=== PATIENT | male | born 1955 | race Caucasian/White ===

== ENCOUNTER 2019-06-13 19:09 | Inpatient (IN) | payer MEDICARE ==
[~2019-06-13] VITALS: Ht 177.8 cm; Wt 92.8 kg
[2019-06-13 19:44] LABS: BASOPHILS ABSOLUTE AUTO 0.04 K/mm3 (0.00-0.23); BASOPHILS PERCENT AUTO 1 % (0-2); EOSINOPHILS ABSOLUTE AUTO 0.14 K/mm3 (0.00-0.68); EOSINOPHILS PERCENT AUTO 2 % (0-6); Hematocrit 47.3 % (37.0-53.0); Hemoglobin 15.9 g/dL (13.5-17.5); IMMATURE GRAN ABSOLUTE AUTO 0.05 K/mm3 (0.00-0.10); IMMATURE GRAN PERCENT AUTO 1 % (0-1); LYMPHOCYTES ABSOLUTE AUTO 2.11 K/mm3 (0.84-5.20); LYMPHOCYTES PERCENT AUTO 28 % (21-46); MONOCYTES ABSOLUTE AUTO 0.76 K/mm3 (0.16-1.47); MONOCYTES PERCENT AUTO 10 % (4-13); Mean Corpuscular HGB Conc 33.6 g/dL (31.5-36.5); Mean Corpuscular Volume 86 fL (80-100); Mean Platelet Volume 11.3 fL (9.1-12.4); NEUTROPHILS ABSOLUTE AUTO 4.44 K/mm3 (1.96-9.15); NEUTROPHILS PERCENT AUTO 59 % (41-73); Platelet Count 195 K/mm3 (150-400); RDW Coefficient Variation 13.2 % (11.7-14.2); RDW Standard Deviation 40.8 fL (35.1-46.3); Red Blood Cell Count 5.49 M/mm3 (4.30-5.90); White Blood Cell Count 7.54 K/mm3 (4.00-11.30)
[2019-06-13] MEDS ORDERED: ATOR20 PO (19:57)
[2019-06-13] MEDS ORDERED: HYDCHL25 PO (19:57)
[2019-06-13] MEDS ORDERED: Lisinopril2.5 MG PO (19:58)
[2019-06-13] MEDS ORDERED: METOPROLOL TART25 MG PO (20:01)
[2019-06-13] MEDS ORDERED: Metformin HCl1000 MG PO (20:01)
[2019-06-13] MEDS ORDERED: NEURONTIN300 MG PO (20:01)
[2019-06-13] MEDS ORDERED: WARF3 PO ×2 (20:02→21:37)
[2019-06-13 20:10] LABS: Alanine Aminotransfer (ALT/SGP 52 U/L (12-78); Albumin, Blood 4.1 g/dL (3.4-5.0); Alk Phos 50 U/L (50-136); Anion Gap 6 mmol/L (6-16); Aspartate Aminotrans (AST/SGOT 26 U/L (12-37); Bilirubin, Total 0.8 mg/dL (0.1-1.0); Blood Urea Nitrogen 15 mg/dL (8-24); Bun/Creatinine Ratio 20.8 (12.0-20.0); CO2, Blood 29 mmol/L (21-32); Calcium, Blood 9.5 mg/dL (8.5-10.1); Chloride, Blood 98 mmol/L (98-108); Creatinine, Blood 0.72 mg/dL (0.60-1.20); Glomerular Filtration Rate >60 (60-); Glucose, Blood 446 mg/dL (70-99); Potassium, Blood 4.1 mmol/L (3.5-5.5); Sodium, Blood 133 mmol/L (136-145); Total Protein, Blood 8.1 g/dL (6.4-8.2); Troponin I <0.015 ng/mL (0.000-0.040)
[2019-06-13] MEDS ORDERED: ATORVASTATIN CA40 MG PO (21:32)
[2019-06-13] MEDS ORDERED: LISI5 PO (21:33)
[2019-06-14 03:08] LABS: BASOPHILS ABSOLUTE AUTO 0.04 K/mm3 (0.00-0.23); BASOPHILS PERCENT AUTO 1 % (0-2); EOSINOPHILS ABSOLUTE AUTO 0.16 K/mm3 (0.00-0.68); EOSINOPHILS PERCENT AUTO 2 % (0-6); Hematocrit 41.9 % (37.0-53.0); Hemoglobin 14.1 g/dL (13.5-17.5); IMMATURE GRAN ABSOLUTE AUTO 0.03 K/mm3 (0.00-0.10); IMMATURE GRAN PERCENT AUTO 0 % (0-1); LYMPHOCYTES ABSOLUTE AUTO 2.05 K/mm3 (0.84-5.20); LYMPHOCYTES PERCENT AUTO 27 % (21-46); MONOCYTES ABSOLUTE AUTO 0.76 K/mm3 (0.16-1.47); MONOCYTES PERCENT AUTO 10 % (4-13); Mean Corpuscular HGB 28.9 pg (26.0-34.0); Mean Corpuscular HGB Conc 33.7 g/dL (31.5-36.5); Mean Corpuscular Volume 86 fL (80-100); Mean Platelet Volume 10.8 fL (9.1-12.4); NEUTROPHILS ABSOLUTE AUTO 4.52 K/mm3 (1.96-9.15); NEUTROPHILS PERCENT AUTO 60 % (41-73); Platelet Count 171 K/mm3 (150-400); RDW Coefficient Variation 13.2 % (11.7-14.2); RDW Standard Deviation 40.5 fL (35.1-46.3); Red Blood Cell Count 4.88 M/mm3 (4.30-5.90); White Blood Cell Count 7.56 K/mm3 (4.00-11.30)
[2019-06-14 03:21] LABS: International Normalized Ratio 2.32; Prothrombin Time Results 23.7 Sec (9.7-11.5)
[2019-06-14 03:24] LABS: Anion Gap 7 mmol/L (6-16); Blood Urea Nitrogen 13 mg/dL (8-24); Bun/Creatinine Ratio 17.9 (12.0-20.0); CO2, Blood 29 mmol/L (21-32); Calcium, Blood 8.9 mg/dL (8.5-10.1); Chloride, Blood 103 mmol/L (98-108); Creatinine, Blood 0.73 mg/dL (0.60-1.20); Glomerular Filtration Rate >60 (60-); Glucose, Blood 185 mg/dL (70-99); Potassium, Blood 3.6 mmol/L (3.5-5.5); Sodium, Blood 139 mmol/L (136-145)
[2019-06-14 03:28] LABS: Creatine Kinase MB 4.2 ng/mL (0.0-3.6); Creatine Kinase MB Index 2.9 (0.0-4.0); Troponin I 0.047 ng/mL (0.000-0.040)
--- NOTE | 2019-06-14 06:33 | NUR ---
SHIFT SUMMARY PATIENT ARRIVED TO THE UNIT AT 0047. PATIENT ALERT AND ORIENTED X 4. ABLE TO STAND AND WALK WITHOUT ANY HELP. DIRECT CUSTOMER SERVICE REPRESENTATIVE SHOWS HIS HEART TO BE IN AFIB AT A BRADYCARDIC RATE MOSTLY IN THE 50'S BUT SOMETIMES BRADYING DOWN TO 40 FOR A SECOND OR TWO. PATIENT HAS NOT COMPLAINED OF CHEST PAIN SINCE HIS ADMIT. BOTH IVS PATENT AND FLUSHED. BED IN LOWEST POSITION WITH WHEELS LOCKED. CALL LIGHT AND BELONGINGS WITHIN REACH. REPORT GIVEN TO ONCOMING RN.
--- NOTE | 2019-06-14 18:22 | NUR ---
PT HAS BEEN AOX4 AND PLEASANT WITH CARE. PT INDEPENDENT IN ROOM AND CALLS APPRORIATELY. PT DENIES ANY CHEST PAIN AT THIS TIME. NO NAUSEA. PT WAITING TO HAVE ULTRA SOUND COMPETED AND STRESS TEST TOMORROW WILL CONTINUE TO MONITOR.
--- NOTE | 2019-06-15 04:58 | NUR ---
06/15/19 0450 Patient has had increasing incidence of 3 second pauses. Pt has had 6 this shift, last two just 2 minutes apart. Pt is asymptomatic, BP 133/73. HR does go down to the 37 -38 but is on average 48-50's. Pt has been resting well. Pt is scheduled for a stress test this am. Order is to continue to monitor at this time. Primary RN notified of pauses and call kto doctor.
[2019-06-15 05:20] LABS: BASOPHILS ABSOLUTE AUTO 0.04 K/mm3 (0.00-0.23); BASOPHILS PERCENT AUTO 1 % (0-2); EOSINOPHILS ABSOLUTE AUTO 0.14 K/mm3 (0.00-0.68); EOSINOPHILS PERCENT AUTO 2 % (0-6); Hematocrit 43.1 % (37.0-53.0); Hemoglobin 14.3 g/dL (13.5-17.5); IMMATURE GRAN ABSOLUTE AUTO 0.04 K/mm3 (0.00-0.10); IMMATURE GRAN PERCENT AUTO 1 % (0-1); LYMPHOCYTES ABSOLUTE AUTO 2.35 K/mm3 (0.84-5.20); LYMPHOCYTES PERCENT AUTO 33 % (21-46); MONOCYTES ABSOLUTE AUTO 0.66 K/mm3 (0.16-1.47); MONOCYTES PERCENT AUTO 9 % (4-13); Mean Corpuscular HGB 28.6 pg (26.0-34.0); Mean Corpuscular HGB Conc 33.2 g/dL (31.5-36.5); Mean Corpuscular Volume 86 fL (80-100); Mean Platelet Volume 11.4 fL (9.1-12.4); NEUTROPHILS ABSOLUTE AUTO 3.89 K/mm3 (1.96-9.15); NEUTROPHILS PERCENT AUTO 55 % (41-73); Platelet Count 180 K/mm3 (150-400); RDW Coefficient Variation 13.2 % (11.7-14.2); RDW Standard Deviation 40.7 fL (35.1-46.3); White Blood Cell Count 7.12 K/mm3 (4.00-11.30)
[2019-06-15 05:40] LABS: Alanine Aminotransfer (ALT/SGP 41 U/L (12-78); Albumin, Blood 3.4 g/dL (3.4-5.0); Alk Phos 37 U/L (50-136); Anion Gap 6 mmol/L (6-16); Aspartate Aminotrans (AST/SGOT 21 U/L (12-37); Bilirubin, Total 1.3 mg/dL (0.1-1.0); Blood Urea Nitrogen 17 mg/dL (8-24); Bun/Creatinine Ratio 25.6 (12.0-20.0); CO2, Blood 27 mmol/L (21-32); Calcium, Blood 8.8 mg/dL (8.5-10.1); Chloride, Blood 102 mmol/L (98-108); Creatinine, Blood 0.67 mg/dL (0.60-1.20); Globulin, Blood 3.4 g/dL (2.2-4.0); Glomerular Filtration Rate >60 (60-); Glucose, Blood 231 mg/dL (70-99); Potassium, Blood 3.4 mmol/L (3.5-5.5); Sodium, Blood 135 mmol/L (136-145); Total Protein, Blood 6.8 g/dL (6.4-8.2)
--- NOTE | 2019-06-15 07:40 | NUR ---
06/15/19 0645 AWAKENED FOR AM MED. DENIES ANY S/S OR DISCOMFORT THIS SHIFT. PT HAS HAD SEVERAL PAUSES ON THE HEART MONITOR BUT WAS ASYMPTOMATIC. GREATEST PAUSE WAS 3.5 SECONDS PER DEVULCANIZER CHARGER, ASHLEY. CONVERTIBLE POWER SHOVEL OPERATOR HOSPITALIST NOTIFIED OF PAUSES BY PALLIATIVE NURSEABELARDO. INFORMED HER TO JUST CONTINUE TO MONITOR PT. NPO EXCEPT FOR MEDS/ICE CHIPS SINCE MIDNIGHT FOR STRESS TEST TODAY. HEPARIN DRIP RUNNING THIS SHIFT. SEE JUN.
--- NOTE | 2019-06-15 17:10 | NUR ---
PT HAS BEEN AOX4 AND COOPERATIVE OF CARE. PT WAS NPO THIS AM AND THEN WAS ABLE TO EAT BREAKFAST NUCLEAR MEDICINE SCHEDULED FOR 1330. PT WAS THEN MADE NPO AFTER 0930. THIS TERMITE TREATER HELPER WAS CALLED AND TOLD OF TIME SCHEDULE FOR 06/16/19 FOR PT AND WENT INTO ROOM TO DISCUSS TOMORROWS SCHEDULE. PT'S WAS A LITTLE UPSET AND STATED PT WOULD BE GOING HOME AND THEY WOULD BE LEAVING. RAG CUTTING MACHINE TENDER MILEY CAME IN AND LISTENED TO PT'S CONCERNS AND WAS ABLE TO EXPLAIN TO THEM IMPORTANCE OF TEST AND HELP THEM UNDERSTAND WHAT INSURANCE WOULD COST. AFTER SHE WAS DONE THIS TERMITE TREATER HELPER SPOKE WITH PT AND HIS TO MAKE SURE THEY WERE HAPPY WITH THEIR CARE. THEY STATED THEY HAD JUST BEEN CONFUSED AND WERE FEELING MUCH BETTER ABOUT HIS STAY. PT COMPLETED FIRST PART OF HIS TESTING TODAY AND IS COMFORTABLY WATCHING TV IN BED. NO PAIN REPORTED AND WILL CONTINUE TO MONITOR.
[2019-06-16 03:45] LABS: Anion Gap 8 mmol/L (6-16); Blood Urea Nitrogen 19 mg/dL (8-24); Bun/Creatinine Ratio 22.9 (12.0-20.0); CO2, Blood 26 mmol/L (21-32); Calcium, Blood 8.8 mg/dL (8.5-10.1); Chloride, Blood 103 mmol/L (98-108); Creatinine, Blood 0.83 mg/dL (0.60-1.20); Glomerular Filtration Rate >60 (60-); Glucose, Blood 197 mg/dL (70-99); Potassium, Blood 3.5 mmol/L (3.5-5.5); Sodium, Blood 137 mmol/L (136-145)
--- NOTE | 2019-06-16 05:56 | NUR ---
REGISTERED CLINICAL DIETITIAN SUMMARY Slept through the night. no complaints of Chest pain, SOB, pressure, nausea or diaphoreses. Heparin gtt currently running at 18 units/kg/hr for a rate of 33.5 ml/hr. next ptt 0900 today. Patient aware of caffiene dietary restrictions and that he is NPO after breakfast for 1430 2nd part stress test.
--- NOTE | 2019-06-16 14:23 | NUR ---
PT HAD BF THEN NPO X WATER FOR 2ND PORTION STRESS TEST. HRT CTR RN IN @ 1400 TO START TEST. PT'S @ BEDSIDE.
[2019-06-16 19:05] LABS: International Normalized Ratio 1.17; Prothrombin Time Results 12.4 Sec (9.7-11.5)
--- NOTE | 2019-06-16 19:24 | NUR ---
summary PT IS A/O X4, PLEASANT AFFECT, UP IND IN ROOM. HEP GTT INFUSING T/O DAY @ 33.5 ML/HR W/O CHANGE TO RATE, PHARMACY DOSING. HR HOMER/TELE, 50'S, PT HAS HAD MULT PAUSES, DR BECKWITH AWARE. 2ND PORTION STRESS TEST COMPLETED THIS AFTERNOON. REPORT READY FOR TO INTERPRET APPROX 1700. NOTIFIED DR BECKWITH WHO HAD US CONTACT GROUND CREWMAN DR CAIN WHO CAME IN TO SEE PT @ APPROX 1900. DISCUSS RESULTS w PT & , STATE NO NEED FOR ANGIOGRAM, D/C HEP GTT & RESTART COUMADIN, DECREASE METOPROLOL DOSE. STATE PT MAY GO HOME TONITE. NOC RN RECIEVED ORDER, NOTIFIED NOC PRODUCTION CONTROL EXPERT.
--- NOTE | 2019-06-16 20:27 | NUR ---
Call placed to hospitalist regarding consulting roller skates assembler statement that it is "ok to discharge home". Patient anxious to go home. also in room waiting for news. Spoke with Dr. Brooks and made her aware of situation. She will respond to this as soon as she can as she is admitting a patient at this time
[2019-06-16] MEDS ORDERED: POTA10T PO (22:30)
[2019-06-16] MEDS ORDERED: Humulin N100 UNIT/1 SC (22:36)
[2019-06-16] MEDS ORDERED: Humalog Mi100 UNIT/4 SC (22:38)
--- NOTE | 2019-06-16 23:51 | NUR ---
Patient was given discharge instructions and discussed med changes. Patient is pain free. Pt taken via W/C to private car at 2330 with all belongings. Pt is aware he is to return to [facility] tomorrow for an event pcb designer.
== END 2019-06-16 23:13 | disposition home or self-care (01) | DRG 281 ==
LOC: ER 19:09 → MEDS 19:10
PROVIDERS: Emergency Medicine; Family Medicine; Internal Medicine Interventional Cardiology; ADMIT Internal Medicine
DX: I21.4 Non-ST elevation (NSTEMI) myocardial infarction (principal); I16.1 Hypertensive emergency; I25.10 Atherosclerotic heart disease of native coronary artery without angina pectoris; Z95.5 Presence of coronary angioplasty implant and graft; I10 Essential (primary) hypertension; I48.91 Unspecified atrial fibrillation; E78.5 Hyperlipidemia, unspecified; E11.65 Type 2 diabetes mellitus with hyperglycemia; Z79.01 Long term (current) use of anticoagulants; K21.9 Gastro-esophageal reflux disease without esophagitis; M54.30 Sciatica, unspecified side; K80.20 Calculus of gallbladder without cholecystitis without obstruction; K76.0 Fatty (change of) liver, not elsewhere classified; R00.1 Bradycardia, unspecified
CPT/HCPCS: 36415; 71046; 71275; 74175; 76700; 78452; 80048; 80053; 82550; 82553; 82947; 83880; 84484; 85025; 85610; 85730; 93005; 93010; 93017; 96365-59; 96366; 96375; 99285-25; A9270-GY; A9500; C9113; G0378; J0706; J1644; J1815; J2785; J7050; Q9967

== ENCOUNTER → 2023-05-01 | Outpatient (CLI) | payer MEDICARE ==
[~2023-05-01] MED LIST: ATOR20 PO; ATORVASTATIN CA40 MG PO; HYDCHL25 PO; Humalog Mi100 UNIT/4 SC; Humulin N100 UNIT/1 SC; LISI5 PO; Lisinopril2.5 MG PO; METOPROLOL TART25 MG PO; Metformin HCl1000 MG PO; NEURONTIN300 MG PO; POTA10T PO; WARF3 PO
[2023-05-01 11:53] LABS: BASOPHILS ABSOLUTE AUTO 0.04 K/mm3 (0.00-0.23); BASOPHILS PERCENT AUTO 1 % (0-2); EOSINOPHILS ABSOLUTE AUTO 0.16 K/mm3 (0.00-0.68); EOSINOPHILS PERCENT AUTO 2 % (0-6); Hematocrit 45.6 % (37.0-53.0); Hemoglobin 15.4 g/dL (13.5-17.5); IMMATURE GRAN ABSOLUTE AUTO 0.02 K/mm3 (0.00-0.10); IMMATURE GRAN PERCENT AUTO 0 % (0-1); LYMPHOCYTES ABSOLUTE AUTO 1.59 K/mm3 (0.84-5.20); LYMPHOCYTES PERCENT AUTO 22 % (21-46); MONOCYTES ABSOLUTE AUTO 0.66 K/mm3 (0.16-1.47); MONOCYTES PERCENT AUTO 9 % (4-13); Mean Corpuscular HGB 29.2 pg (26.0-34.0); Mean Corpuscular HGB Conc 33.8 g/dL (31.5-36.5); Mean Corpuscular Volume 86 fL (80-100); NEUTROPHILS ABSOLUTE AUTO 4.72 K/mm3 (1.96-9.15); NEUTROPHILS PERCENT AUTO 66 % (41-73); Platelet Count 207 K/mm3 (150-400); RDW Coefficient Variation 13.3 % (11.7-14.2); RDW Standard Deviation 41.7 fL (35.1-46.3); Red Blood Cell Count 5.28 M/mm3 (4.30-5.90); White Blood Cell Count 7.19 K/mm3 (4.00-11.30)
[2023-05-01 12:10] LABS: Albumin, Blood 3.6 g/dL (3.4-5.0); Bilirubin, Total 1.5 mg/dL (0.1-1.0); Bun/Creatinine Ratio 13.3 (12.0-20.0); Calcium, Blood 9.3 mg/dL (8.5-10.1); Creatinine, Blood 1.2 mg/dL (0.60-1.20); Globulin, Blood 3.6 g/dL (2.2-4.0); Potassium, Blood 4.4 mmol/L (3.5-5.5); Total Protein, Blood 7.2 g/dL (6.4-8.2)
== END | disposition home or self-care (01) ==
LOC: LAB 11:47 → LAB SHORT 11:47
PROVIDERS: Chiropractor
DX: E11.9 Type 2 diabetes mellitus without complications (principal); N40.0 Benign prostatic hyperplasia without lower urinary tract symptoms; R10.9 Unspecified abdominal pain
CPT/HCPCS: 80053; 83036; 85025; 87086

== ENCOUNTER → 2023-12-11 | Outpatient (CLI) | payer MEDICARE ==
[2023-12-11 08:07] LABS: BASOPHILS ABSOLUTE AUTO 0.03 K/mm3 (0.00-0.23); BASOPHILS PERCENT AUTO 0 % (0-2); EOSINOPHILS ABSOLUTE AUTO 0.16 K/mm3 (0.00-0.68); EOSINOPHILS PERCENT AUTO 2 % (0-6); Hematocrit 46.4 % (37.0-53.0); Hemoglobin 15.2 g/dL (13.5-17.5); IMMATURE GRAN ABSOLUTE AUTO 0.05 K/mm3 (0.00-0.10); IMMATURE GRAN PERCENT AUTO 1 % (0-1); LYMPHOCYTES ABSOLUTE AUTO 1.23 K/mm3 (0.84-5.20); LYMPHOCYTES PERCENT AUTO 13 % (21-46); MONOCYTES ABSOLUTE AUTO 0.74 K/mm3 (0.16-1.47); MONOCYTES PERCENT AUTO 8 % (4-13); Mean Corpuscular HGB 27.9 pg (26.0-34.0); Mean Corpuscular HGB Conc 32.8 g/dL (31.5-36.5); Mean Corpuscular Volume 85 fL (80-100); Mean Platelet Volume 10.4 fL (9.1-12.4); NEUTROPHILS ABSOLUTE AUTO 7.18 K/mm3 (1.96-9.15); NEUTROPHILS PERCENT AUTO 77 % (41-73); Platelet Count 260 K/mm3 (150-400); RDW Coefficient Variation 13.1 % (11.7-14.2); RDW Standard Deviation 40.1 fL (35.1-46.3); Red Blood Cell Count 5.45 M/mm3 (4.30-5.90); White Blood Cell Count 9.39 K/mm3 (4.00-11.30)
[2023-12-11 08:15] LABS: Albumin, Blood 3.1 g/dL (3.4-5.0); Albumin/Globulin Ratio 0.7 (0.8-1.8); Bun/Creatinine Ratio 15.4 (12.0-20.0); Calcium, Blood 8.7 mg/dL (8.5-10.1); Creatinine, Blood 1.04 mg/dL (0.60-1.20); Globulin, Blood 4.2 g/dL (2.2-4.0); Potassium, Blood 3.9 mmol/L (3.5-5.5); Total Protein, Blood 7.3 g/dL (6.4-8.2)
[2023-12-11 08:55] LABS: International Normalized Ratio 3.56; Prothrombin Time Results 34.7 Sec (9.7-11.5)
== END ==
LOC: LAB SHORT 08:01 → LAB 08:01
PROVIDERS: Emergency Medicine
DX: R53.81 Other malaise (principal); R53.83 Other fatigue; R31.0 Gross hematuria; Z79.01 Long term (current) use of anticoagulants
CPT/HCPCS: 80053; 85025; 85610

== ENCOUNTER 2024-02-08 06:54 | Day surgery (SDC) | payer MEDICARE ==
[~2024-02-08] VITALS: Ht 175.3 cm; Wt 77.7 kg
[~2024-02-08 06:54] MED LIST changes: +ATOR40TA PO; +HUMULIN 70100 UNIT/3 SC; +LISI20 PO; +METF500 PO; +METO25 PO; +ONDA4ODT SL; +OXYC5 PO; +TAMS.4ER PO; +WARF1 PO
[2024-02-08] MEDS ORDERED: Lactated Ringer's 1,000 ML IV SCH (07:40)
[2024-02-08] MEDS ORDERED: CeFAZolin Sodium 2,000 MG in NS 100 ML IV SCH (07:40)
[2024-02-08] MEDS ORDERED: CeFAZolin Sodium 2,000 MG VIAL ONE (07:41)
[2024-02-08] MEDS ORDERED: propofoL 60 ML IV ONE (07:55)
[2024-02-08 08:00] VITALS: BP 100/83
--- NOTE | 2024-02-08 08:16 | NUR ---
PT TO UNIT VIA W/C. 2 PERSON STAND BY ASSIST TO GET FROM W/C TO GURN. PT REPORTS FEELING WEAK. AT BEDSIDE. Patient States Post-Procedure ride home has been arranged WITH . History, Chart, Medications and Allergies reviewed before start of procedure. BELONGINGS PLACED UNDER GURN. GLASSES GIVEN TO IN PRE OP.
[2024-02-08] MEDS ORDERED: Lidocaine HCl 1% 30 ML SDV ONE (08:39)
[2024-02-08 09:38] VITALS: BP 93/60
[2024-02-08 09:45] VITALS: BP 91/63
[2024-02-08 09:55] VITALS: BP 101/71
[2024-02-08 10:13] VITALS: BP 112/73
--- NOTE | 2024-02-08 10:17 | NUR ---
ADRIANA FROM RADIOLOGY CALLED TO NOTIFY THAT XRAY CONFIRMS CORRECT PLACEMENT
--- NOTE | 2024-02-08 10:33 | NUR ---
PT A/O, BEEN TO XRAY AND BACK, SEE NOTE FROM CHARGE NURSE. PT TOLERATING PO. VS AT BASELINE. PT DENIES PAIN. INCISIONS C/D/I. PT AND FAMILY REPORT READY TO GO HOME. REPORTS HAVING WALKER AT HOME. Patient up to Ambulate independently WITH WALKER. Gait steady. Discharge instructions reviewed with patient. Patient verbalizes understanding. Copy given to patient to take home, WELL FAMILY. Patient States Post-Procedure ride home has been arranged. Discharged via wheelchair to private car for ride home.
== END 2024-02-08 10:33 | disposition home or self-care (01) ==
LOC: ORSCMMR 06:54 → ORD 08:30 → ORSCMMR 08:30
PROVIDERS: Surgery
PROC: 0JH63WZ Insertion of Totally Implantable Vascular Access Device into Chest Subcutaneous Tissue and Fascia, Percutaneous Approach (ICD-10-PCS; principal; 2024-02-08 08:30)
PROC: 05HM33Z Insertion of Infusion Device into Right Internal Jugular Vein, Percutaneous Approach (ICD-10-PCS; principal; 2024-02-08 08:30)
PROC: B543ZZA Ultrasonography of Right Jugular Veins, Guidance (ICD-10-PCS; principal; 2024-02-08 08:30)
DX: C25.9 Malignant neoplasm of pancreas, unspecified (principal); I10 Essential (primary) hypertension; I25.10 Atherosclerotic heart disease of native coronary artery without angina pectoris; Z79.899 Other long term (current) drug therapy; E11.319 Type 2 diabetes mellitus with unspecified diabetic retinopathy without macular edema; Z79.84 Long term (current) use of oral hypoglycemic drugs; Z79.4 Long term (current) use of insulin; Z79.01 Long term (current) use of anticoagulants
CPT/HCPCS: 77001; 82947; C1788; J0690; J1642; J2704; J7120

== ENCOUNTER 2024-02-12 12:37 | Emergency (ER) | payer MEDICARE ==
[~2024-02-12] VITALS: Ht 177.8 cm; Wt 83.9 kg
[2024-02-12 12:46] VITALS: BP 0/0
--- NOTE | 2024-02-12 13:53 | NUR ---
"Spiritual Care | EOL At the request of the housetrailer servicer this screen stretcher was called to ED26 where the Pt. had exired. This screen stretcher was in position to support family when they arrive. When Spouse arrived this screen stretcher excorted her to an assigned ED room. I was joined by the housetrailer servicer who graciously informed the spouse that the Pt. had passed. We escorted the Pt. to bedside and facilicated emotional triage as the Spouse appropriately grieved. Prayer is given for the Pt. and spouse. Facilitated more of a life review as the spouse was able to compose herself. The spouse chose [facility] for their home. The ED staff made fingerprint keychains and necklaces for the family. Since Pt. was to begin home hospice tomorrow, the housekeeping assistant contacted [facility] about the Pt. This screen stretcher informed the spouse that this contact was made. This screen stretcher escorted Spouse to the parking lot where she verbalized gratitude for the spiritual care support."
== END 2024-02-12 12:40 ==
LOC: ER 12:37
DX: I46.9 Cardiac arrest, cause unspecified (principal); Z79.899 Other long term (current) drug therapy; Z79.4 Long term (current) use of insulin; Z79.01 Long term (current) use of anticoagulants; I48.91 Unspecified atrial fibrillation; E11.9 Type 2 diabetes mellitus without complications; I10 Essential (primary) hypertension; E78.5 Hyperlipidemia, unspecified; K21.9 Gastro-esophageal reflux disease without esophagitis; Z87.891 Personal history of nicotine dependence
CPT/HCPCS: 92950; 99285-25